=== PATIENT | female | born 1955 | race Hispanic/Latino ===

== ENCOUNTER 2016-12-20 10:00 | Emergency (ER) | payer OTHER ==
[~2016-12-20] VITALS: Ht 157.5 cm; Wt 98.6 kg
[~2016-12-20 10:00] MED LIST: ALBU8.5H2 IH; LEVO75TA4 PO; METO25TA99 PO; Oxycodone Hcl/Acetaminophen PO; Sulfamethoxazole/Trimethoprim PO
[2016-12-20 10:05] VITALS: BP 179/109; PULSE 66; RESP 18; O2SAT 97
--- NOTE | 2016-12-20 10:37 | ED.REPORT ---
HPI-General Illness Date of Service Dec 20, 2016 ED Provider: Vicky Su MD Pt is a 61 y/o female w/ a hx of recent LLE DVT currently on Eliquis, recurrent pyelonephritis, cervical cancer (s/p radiation and surgeries), presenting to the ED due to hypertension. The patient was told to periodically check her BP because her PCP Dr. Rohit Mckinley noticed she was hypertensive during her last visit. She recorded a BP of 140/82 yesterday, and today her BP was >200 systolic. She had a headache yesterday but today feels somewhat asymptomatic. She reports some mild exertional dyspnea today which is not much unchanged from her baseline. She denies CP, abdominal pain, nausea, vomiting, fever, chills. Nursing Notes Stated Complaint: HIGH BLOOD PRESSURE Chief Complaint: General Complaint Nursing Notes Reviewed: Yes Allergies: Coded Allergies: iodine (Verified Allergy, Unknown, HIVES, (DYE), 07/16/16) PATIENT STATES SHE STILL HAD A REACTION EVEN WITH PRE TREATMENT. DOES NOT WANT IV CONTRAST AGAIN. Scheduled ([Sulfamethoxazole/Trimethoprim]) 1 TABLET TABLET 1 TABLET PO BID Levothyroxine (Levothyroxine) 75 Mcg Tablet 75 MCG PO DAILY Metoprolol Succinate ER (Metoprolol Succinate ER) 25 Mg Tab.er.24h 25 MG PO DAILY Scheduled PRN ([Oxycodone Hcl/Acetaminophen]) 1 TAB TABLET 1 TAB PO Q4H PRN PRN For Pain Albuterol HFA (Proair HFA) 8.5 Gm Hfa.aer.ad 2 PUFFS IH Q4 PRN PRN For Wheezing General Time Seen by MD: 10:23 Chief Complaint Other (Hypertension) Hx Obtained From: Patient Arrived By: Walk-in Onset Occurred: 1 - 4 hours ago Symptom Duration: Since onset Location: : Head Quality: Aching Severity: Current: No pain currently Severity: Maximum: Moderate Past Medical History Past Medical History Hypertension obesity Cervical cancer s/p surgical and radiation therapy Hx recurrent pyelonephritis Hx sepsis Hx DVT on Eliquis Past Surgical History She had an endometrial polyp removed by myself [id number], ablation was not performed. She had a tubal ligation some 27 years ago. Smoking History Never Smoker Social History Other Social History: Local resident Ambulatory Status Independent Review of Systems Full Review of Systems Constitutional: Denies: Chills, Fever Respiratory: Reports: Dyspnea on exertion Cardiovascular: Denies: Chest pain GI: Denies: Abdominal pain, Nausea, Vomiting Neurologic: Reports: Headache Complete sys rev & neg: except as marked. Physical Exam Vital Signs Vital Signs Date Time Temp Pulse Resp B/P Pulse Ox O2 Delivery O2 Flow Rate FiO2 12/20/16 12:56 36.8 90 16 155/93 97 Room Air 12/20/16 12:20 36.8 90 16 155/93 97 Room Air 12/20/16 10:05 36.4 66 18 179/109 97 Room Air Initial VS: Reviewed, Vital signs abnormal Head / Eyes: Atraumatic, Normocephalic, PERRL ENT: Mucous membranes moist, Conjunctiva normal, No scleral icterus Neck: Supple, Full range of motion Respiratory: Breath sounds normal, Clear to auscultation, No respiratory distress Cardiovascular: Regular rate & rhythm, Heart sounds normal, Intact distal pulses Abdomen / GI: Soft Extremities: Vascular intact, Neuro intact, No swelling, No tenderness Skin: Warm, Dry, No cyanosis Neurologic: Alert, Oriented, Nonfocal Psychiatric: Mood/affect normal, Behavior normal, Normal thought content General/Constitutional: Awake, Alert, No acute distress, Well appearing, Cooperative, Not toxic appearing BP 178/117 at time of interview. Interpretation & Diagnostics Lab Results Interpretation Result Diagram: 12/20/16 1122 12/20/16 1122 Test 12/20/16 11:22 12/20/16 11:29 White Blood Count 8.1th/mm3 (3.8-10.1) Red Blood Count 4.78mil/mm3 (3.90-5.20) Hemoglobin 13.6g/dL (12.0-15.6) Hematocrit 41.4% (35.0-46.0) Mean Corpuscular Volume 86.6fL (81-100) Mean Corpuscular Hemoglobin 28.5pg (27.0-35.0) Mean Corpuscular Hemoglobin Concent 32.9% (32.0-37.0) Red Cell Distribution Width 15.2% (12.3-15.4) Platelet Count 313bil/L (150-400) Neutrophils (%) (Auto) 75.9% (40-74) Lymphocytes (%) (Auto) 17.1% (14-46) Monocytes (%) (Auto) 4.9% (4-12) Eosinophils (%) (Auto) 1.0% (0-5) Basophils (%) (Auto) 0.7% (0-3) Sodium Level 138mEq/L (134-144) Potassium Level 4.5mEq/L (3.5-5.2) Chloride Level 103mEq/L (97-108) Carbon Dioxide Level 21mmol/L (18-29) Blood Urea Nitrogen 14mg/dL (6-24) Creatinine 0.65mg/dL (0.57-1.00) Estimat Glomerular Filtration Rate 134mL/min (>59) Glucose Level 101mg/dL (60-99) Calcium Level 9.4mg/dL (8.5-10.1) Troponin T < 0.010ug/L (0.0-0.011) Urine Color Straw (YELLOW) Urine Appearance Hazy (CLEAR,HAZY) Urine pH 7.0 (5.0-8.0) Urine Specific [place] 1.010 (1.003-1.035) Urine Protein Negativemg/dL (NEG,TRACE) Urine Glucose (UA) Negativemg/dL (NEGATIVE) Urine Ketones Negativemg/dL (NEGATIVE) Urine Occult Blood Small (NEGATIVE) Urine Nitrite Positive (NEGATIVE) Urine Bilirubin Negative (NEGATIVE) Urine Urobilinogen Normalmg/dL (NORMAL) Urine Leukocyte Esterase Small (NEGATIVE) Urine RBC 0-2/hpf (0-2) Urine WBC 6-10/hpf (0-5) Urine Epithelial Cells Occasional/hpf (NONE-MOD) Urine Crystals None seen (NONE SEEN) Urine Bacteria Moderate/hpf (NONE-FEW) Urine Hyaline Casts None/lpf (NONE) Urine Granular Casts None seen (NONE SEEN) Urine Waxy Casts None seen (NONE SEEN) Urine Red Blood Cell Casts None seen (NONE SEEN) Urine White Blood Cell Casts None seen (NONE SEEN) Urine Mucus None seen (None Seen) Urine Trichomonas None seen (NONE SEEN) Urine Yeast None (NONE SEEN) Urinalysis Comment None Urine Culture Reflexed Indicated Lab Results Interpretation: Urine dip: + leukocytes, positive nitrites, 50 blood. Chronic catheter use - doubt UTI ECG Interpretation ECG Interpretation: Sinus rhythm rate 80 Inverted T waves in all precordial leads No prior available for comparison Time: 11:38 Interpreted by: ED physician Normal ECG Interpretation: No acute ischemic changes Re-Eval/Medical Decision Time of Eval: 11:30 Re-Evaluation/Progress Note: Pt rechecked. Informed pt of need for baseline labs and EKG today and plan for medication increase. Time of Eval: 12:21 Re-Evaluation/Progress Note: Pt rechecked. Remains asymptomatic. BP 155/93 after Metoprolol. Awaiting labs. Consultation : Referral / Consult Name: Candy Mitchell MD Consulted With: Primary care physician Call Returned at: 11:10 Bath Mix Operator: Agrees with eval, Agrees with plan Note: Agrees to increase Metoprolol to 25 mg BID. Last TSH was in July. Requested baseline labs and to keep her follow-up for next week. Counseled Regarding: Diagnosis, Lab results, Need for follow-up, When/why to return to ED Discharge & Departure Primary Impression: Hypertension Hypertension type: unspecified secondary hypertension Hypertension goal: unspecified goal Qualified Code: I15.9 - Secondary hypertension, unspecified Disposition: Home Discharge Condition All VS Reviewed: Yes Condition: Stable Patient Instructions: Chronic Hypertension (ED) Additional Instructions: Your blood pressure is not emergently increased at this time. I was able to contact a physican who works with Dr. Mckinley today. You should increase your Metoprolol to 25 mg (full pill) morning and night. Keep your follow-up appointment with Dr. Mckinley next week. Return to the emergency department if you experience chest pain, severe headache , trouble breathing, profuse sweating, or for other concerning symptoms. Referrals: Rohit Mckinley MD (PCP) Scribe Attestation Portions of this note were transcribed by Rolly Sultana. I, Dr. Su personally performed the history, physical exam and medical decision-making; I reviewed and confirmed the accuracy of the information in the transcribed note. Signed by Nubia Kahn, 12/20/16 - [id number] copies to: Rohit Mckinley MD, Shawna L MD Dec 20, 2016 10:36 ROLLY SULTANA Dec 20, 2016 10:45
[2016-12-20 11:28] LABS: BASOPHILS % (AUTO) 0.7 % (0-3); MONOCYTES % (AUTO) 4.9 % (4-12); Mean Corpuscular Hemoglobin 28.5 pg (27.0-35.0); Mean Corpuscular Volume 86.6 fL (81-100); NEUTROPHILS % (AUTO) 75.9 % (40-74); Platelet Count 313 bil/L (150-400)
[2016-12-20 11:44] LABS: APPEARANCE,URINE HAZY (CLEAR,HAZY); COLOR,URINE STRAW (YELLOW); OCCULT BLOOD,URINE SMALL (NEGATIVE)
[2016-12-20 11:45] LABS: UROBILINOGEN,URINE NORMAL (NORMAL)
[2016-12-20 12:20] VITALS: BP 155/93; PULSE 90; RESP 16; O2SAT 97
[2016-12-20 12:56] VITALS: BP 155/93; PULSE 90; RESP 16; O2SAT 97
== END 2016-12-20 12:52 | disposition home or self-care (01) ==
LOC: SED 10:00
DX: I10 Essential (primary) hypertension (principal); Z85.41 Personal history of malignant neoplasm of cervix uteri

== ENCOUNTER 2017-05-21 15:29 | Emergency (ER) | payer OTHER ==
[~2017-05-21] VITALS: Ht 158.8 cm; Wt 100.0 kg
[2017-05-21 15:37] VITALS: BP 146/96; PULSE 84; RESP 18; O2SAT 95
[2017-05-21 16:36] LABS: BASOPHILS % (AUTO) 0.6 % (0-3); EOSINOPHILS % (AUTO) 0.5 % (0-5); MONOCYTES % (AUTO) 4.5 % (4-12); Mean Corpuscular Hemoglobin 29.7 pg (27.0-35.0); Mean Corpuscular Volume 89.7 fL (81-100); NEUTROPHILS % (AUTO) 80.7 % (40-74); Platelet Count 278 bil/L (150-400)
--- NOTE | 2017-05-21 16:51 | ED.REPORT ---
HPI-Abd Pain F 40 and Over Date of Service May 21, 2017 ED Provider: Tono Nelson MD A 62 year old female with a history of hypertension, cervical cancer s/p surgical and radiation therapy, recurrent pyelonephritis, and DVT on Eloquis presents to the ED complaining of RUQ abdominal pain that began 3 days ago but became increasingly worse this morning. She reports that the pain radiates to her back. The pain is exacerbated by eating. She denies fever, dysuria or vomiting. She denies any previous abdominal surgeries. Nursing Notes Stated Complaint: RIGHT UPPER FRONT BACK PAIN Chief Complaint: Female Abdominal Pain Nursing Notes Reviewed: Yes Allergies: Coded Allergies: iodine (Verified Allergy, Unknown, HIVES, (DYE), 07/16/16) PATIENT STATES SHE STILL HAD A REACTION EVEN WITH PRE TREATMENT. DOES NOT WANT IV CONTRAST AGAIN. Scheduled ([Sulfamethoxazole/Trimethoprim]) 1 TABLET TABLET 1 TABLET PO BID Levothyroxine (Levothyroxine) 75 Mcg Tablet 75 MCG PO DAILY Metoprolol Succinate ER (Metoprolol Succinate ER) 25 Mg Tab.er.24h 25 MG PO DAILY Scheduled PRN ([Oxycodone Hcl/Acetaminophen]) 1 TAB TABLET 1 TAB PO Q4H PRN PRN For Pain Albuterol HFA (Proair HFA) 8.5 Gm Hfa.aer.ad 2 PUFFS IH Q4 PRN PRN For Wheezing General Time Seen by MD: 16:50 Chief Complaint Abdominal pain Hx Obtained From: Patient Arrived By: Walk-in Sudden in Onset?: No Onset Occurred: 3 days ago Context of Onset: Eating Symptom Duration: Since onset Progression since Onset: Intermittent Location: : RUQ Quality: Painful Radiation: : Back Severity: Current: No pain currently Severity: Maximum: Moderate Associated with: Denies: Chills, Fever, Nausea, Vomiting Pertinent Negative: Pt denies other symptoms Exacerbated by: Eating Recent Healthcare: No recent doctor visit, No recent hospitalization Risk Factors )( AAA Risk Stratification Hypertension Risk factors reviewed Past Medical History Past Medical History Hypertension obesity Cervical cancer s/p surgical and radiation therapy Hx recurrent pyelonephritis Hx sepsis Hx DVT on Eliquis Past Surgical History She had an endometrial polyp removed by myself [id number], ablation was not performed. She had a tubal ligation some 27 years ago. Smoking History Never Smoker Social History Other Social History: Good social support, Local resident Ambulatory Status Independent Review of Systems Constitutional: Denies: Chills, Fever GI: Reports: Abdominal pain (RUQ), Denies: Nausea, Vomiting Female: Denies: Dysuria Musculoskeletal: Reports: Back pain Complete sys rev & neg: except as marked. Physical Exam Vital Signs Vital Signs (First) Date Time Temp Pulse Resp B/P Pulse Ox O2 Delivery O2 Flow Rate FiO2 05/21/17 15:37 36.9 84 18 146/96 95 Room Air Initial VS: Reviewed Head / Eyes: Atraumatic, Normocephalic, PERRL Neck: Supple, Non-tender, Full range of motion Extremities: Vascular intact, Neuro intact, No swelling, No tenderness Skin: Warm, Dry, No cyanosis Neurologic: Alert, Oriented, Nonfocal Psychiatric: Mood/affect normal, Behavior normal, Normal thought content General/Constitutional: Awake, Alert, No acute distress Respiratory / Chest: Atraumatic, Breath sounds NL, Breath sounds = bilat, No respiratory distress Cardiovascular: Heart rate NL, Regular rhythm, Heart sounds NL, No murmurs Abdomen: Atraumatic, Soft, No guarding, No rebound Tenderness/Guarding/Rebound: Positive: Tender RUQ..., Tender epigastric Back: Atraumatic, Inspection NL, No CVA tenderness Interpretation & Diagnostics Lab Results Interpretation Result Diagram: 05/21/17 1632 05/21/17 1632 Test 05/21/17 16:32 05/21/17 17:33 05/21/17 19:03 White Blood Count 10.2th/mm3 (3.8-10.1) Red Blood Count 4.78mil/mm3 (3.90-5.20) Hemoglobin 14.2g/dL (12.0-15.6) Hematocrit 42.9% (35.0-46.0) Mean Corpuscular Volume 89.7fL (81-100) Mean Corpuscular Hemoglobin 29.7pg (27.0-35.0) Mean Corpuscular Hemoglobin Concent 33.1% (32.0-37.0) Red Cell Distribution Width 14.8% (12.3-15.4) Platelet Count 278bil/L (150-400) Neutrophils (%) (Auto) 80.7% (40-74) Lymphocytes (%) (Auto) 13.4% (14-46) Monocytes (%) (Auto) 4.5% (4-12) Eosinophils (%) (Auto) 0.5% (0-5) Basophils (%) (Auto) 0.6% (0-3) Sodium Level 137mEq/L (134-144) Potassium Level 3.9mEq/L (3.5-5.2) Chloride Level 97mEq/L (97-108) Carbon Dioxide Level 24mmol/L (18-29) Blood Urea Nitrogen 20mg/dL (8-27) Creatinine 0.64mg/dL (0.57-1.00) Estimat Glomerular Filtration Rate 136mL/min (>59) Glucose Level 109mg/dL (60-99) Calcium Level 9.8mg/dL (8.5-10.1) Magnesium Level 1.9mg/dL (1.6-2.6) Total Bilirubin 2.2mg/dL (0.0-1.2) Aspartate Amino Transf (AST/SGOT) 213U/L (0-50) Alanine Aminotransferase (ALT/SGPT) 255U/L (0-32) Alkaline Phosphatase 150U/L (25-165) Troponin T < 0.010ug/L (0.0-0.011) Total Protein 8.4g/dL (6.4-8.4) Albumin 4.0g/dL (3.4-5.0) Lipase 37U/L (13-60) Hold Gooden Top Tube Received (Received) Hold Urine Received (Received) Urine Color Yellow (YELLOW) Urine Appearance Hazy (CLEAR,HAZY) Urine pH 7.0 (5.0-8.0) Urine Specific [place] 1.010 (1.003-1.035) Urine Protein Tracemg/dL (NEG,TRACE) Urine Glucose (UA) Negativemg/dL (NEGATIVE) Urine Ketones Negativemg/dL (NEGATIVE) Urine Occult Blood Trace (NEGATIVE) Urine Nitrite Negative (NEGATIVE) Urine Bilirubin Negative (NEGATIVE) Urine Urobilinogen Normalmg/dL (NORMAL) Urine Leukocyte Esterase Small (NEGATIVE) Urine RBC 3-10/hpf (0-2) Urine WBC 11-50/hpf (0-5) Urine Epithelial Cells Occasional/hpf (NONE-MOD) Urine Crystals None seen (NONE SEEN) Urine Bacteria Few/hpf (NONE-FEW) Urine Hyaline Casts None/lpf (NONE) Urine Granular Casts None seen (NONE SEEN) Urine Waxy Casts None seen (NONE SEEN) Urine Red Blood Cell Casts None seen (NONE SEEN) Urine White Blood Cell Casts None seen (NONE SEEN) Urine Mucus None seen (None Seen) Urine Trichomonas None seen (NONE SEEN) Urine Yeast None (NONE SEEN) Urinalysis Comment None Urine Culture Reflexed Indicated ECG Interpretation ECG Interpretation: Sinus Rhythm Rate 81 LBBB No STT Changes Time: 17:14 Interpreted by: ED physician US Focused Biliary IMPRESSION: 1. Limited study given patient body habitus. 2. Coarse hepatic echotexture suggesting hepatic steatosis although other sources of hepatocellular dysfunction could be considered in the differential. 3. Cholelithiasis. No findings to suggest choledocholithiasis or acute cholecystitis. 4. Right renal atrophy. Dictated by: Bebe Fagan M.D. on 05/21/2017 at 18:42 Exam Performed by: Radiologist Re-Eval/Medical Decision Med Decision/Clinical Course 62-year-old female presenting with right upper quadrant pain 1 day. History of similar in the past. Right upper quadrant ultrasound shows gallstones. No common bile duct dilatation. There is no cholecystitis. She has mild LFT elevation with normal LFTs 2 years ago. Her lipase is normal. LFTs are in the 200s. Her total bilirubin is 2.2. Her pain improved here. I discussed with GI who recommended follow-up with them in 1 week for repeat labs. She is advised to return immediately she has any new or worsening abdominal pain, fevers, nausea vomiting. She will also follow up with general surgery for probable cholecystectomy. Return precautions given. Re-Evaluation/Progress : Time of Eval: 18:20 Patient Status: Condition improved Re-Evaluation/Progress Note: Pain has improved to a 4/10. All of her questions about her diagnosis are addressed. Consultation : Referral / Consult Name: Sergo Gonzales MD Call Returned at: 18:47 Artificial Breeding Technician: Will see patient, Agrees with eval, Agrees with plan, Accepts admit Note: GI Counseled Regarding: Diagnosis, Lab results, Need for follow-up, When/why to return to ED Discharge & Departure Primary Impression: Cholelithiasis Cholelithiasis location: gallbladder Cholecystitis presence: without cholecystitis Biliary obstruction: without biliary obstruction Qualified Code : K80.20 - Calculus of gallbladder without cholecystitis without obstruction Additional Impression: Elevated LFTs Disposition: Home Discharge Condition All VS Reviewed: Yes Condition: Improved Patient Instructions: Gallstones (ED) Additional Instructions: Thank you for trusting us with your care this evening. Your emergency department results including lab work and ultrasound results are indicative of gallstones and I believe that this is the likely cause of your symptoms. This will require surgery. The GI physician (Dr. Gonzales) will contact you tomorrow to schedule a follow up. Please schedule a follow up appointment with the referred surgeon tomorrow (Dr. Coronado). Schedule a follow up appointment with your primary care physician in the next 2- 3 days for a recheck. Please return to the emergency department if you begin to develop any new or worsening conditions including any worsening pain, high fever, shaking chills, uncontrollable nausea or vomiting. Referrals: Rohit Mckinley MD (PCP) Vega Coronado MD Attestation Portions of this note were transcribed by Kiara Coleman. I, Dr. Nelson personally performed the history, physical exam and medical decision-making; I reviewed and confirmed the accuracy of the information in the transcribed note. Signed by: Nubia Concepcion, 05/21/17 1800. copies to: Rohit Mckinley MD, Ben M MD May 21, 2017 16:51 KIARA COLEMAN May 21, 2017 17:05
[2017-05-21 16:58] LABS: Magnesium 1.9 mg/dL (1.6-2.6)
[2017-05-21] MEDS ORDERED: Ondansetron 2 mg/mL 2 mL Inj IVPUSH PRN (17:00)
[2017-05-21] MEDS ORDERED: LidocaineVisc 2%:Antacid 1:1 10 mL Syringe PO ONE (17:05)
--- NOTE | 2017-05-21 18:47 | DRSVH ---
PROCEDURE: US ABDOMEN ([id number]) INDICATIONS: RUQ US TECHNIQUE: Real-time scanning was performed of the abdominal and retroperitoneal organs, with image documentatio n. COMPARISON: [facility], CT, CT KUB, 07/05/2015, 12:48 FINDINGS: Liver: The liver measures 17.7 cm in length and demonstrates diffusely increased echotexture. Gallbladder: The gallbladder wall measures 2.1 mm in thickness. Small stones are layered in the fundu s. No pericholecystic fluid or sonographic Viveros sign. Biliary ducts: Intrahepatic bile ducts are non-dilated. Extrahepatic bile duct caliber measures 6.8 mm. Normal is 6-7 mm or less in diameter, or 10 mm or less post-cholecystectomy. Pancreas: There is only limited visualization of the head of the pancreas. Spleen: Spleen is normal in size and homogeneous in echotexture. Kidneys: Kidneys are normal in size and echotexture. Right kidney measures 8.6 cm long; left kidney measures 11.4 cm long. No hydronephrosis or nephrolithiasis. No solid masses. Aorta: Visualized aorta is normal in caliber at less than 3 cm. Iliacs: The iliacs are not visualized due to overlying bowel gas. IVC: The IVC is nonvisualized. Miscellaneous: No free abdominal fluid. IMPRESSION: 1. Limited study given patient body habitus. 2. Coarse hepatic echotexture suggesting hepatic steatosis although other sources of hepatocellular d ysfunction could be considered in the differential. 3. Cholelithiasis. No findings to suggest choledocholithiasis or acute cholecystitis. 4. Right renal atrophy. Dictated by: Bebe Fagan M.D. on 05/21/2017 at 18:42 Approved by: Bebe Fagan M.D. on 05/21/2017 at 18:46
[2017-05-21 19:17] VITALS: BP 121/80; PULSE 86; RESP 16; O2SAT 94
[2017-05-21 19:22] LABS: APPEARANCE,URINE HAZY (CLEAR,HAZY); COLOR,URINE YELLOW (YELLOW); OCCULT BLOOD,URINE TRACE (NEGATIVE); UROBILINOGEN,URINE NORMAL (NORMAL)
[2017-05-21 19:34] VITALS: BP 121/80; PULSE 86; RESP 16; O2SAT 94
== END 2017-05-21 19:30 | disposition home or self-care (01) ==
LOC: SED 15:29
DX: K80.20 Calculus of gallbladder without cholecystitis without obstruction (principal); R79.89 Other specified abnormal findings of blood chemistry; I10 Essential (primary) hypertension; Z88.8 Allergy status to other drugs, medicaments and biological substances
CPT/HCPCS: 36415; 76700; 80053; 81000; 83690; 83735; 84484; 85025; 87077; 87086; 87088; 87186; 93005; 96374; 96375; 99285; J2270; J2405